=== PATIENT | male | born 1980 | race Caucasian/White ===

== ENCOUNTER 2021-08-01 07:37 | Emergency (ER) | payer OTHER ==
[2021-08-01] MEDS ORDERED: PREDNISONE 20 M20 MG PO (09:13)
== END 2021-08-01 10:06 | disposition home or self-care (01) ==
LOC: ER1 07:37
DX: G89.29 Other chronic pain (principal); M54.50 Low back pain, unspecified
CPT/HCPCS: 96374; 96375; 99283; J1100; J1885; J2270

== ENCOUNTER → 2021-08-19 | Outpatient (CLI) | payer BC ==
[~2021-08-19] MED LIST: PREDNISONE 20 M20 MG PO
== END ==
LOC: MRI 14:39 → KOH-I 16:00
DX: M48.061 Spinal stenosis, lumbar region without neurogenic claudication (principal); M51.36 Other intervertebral disc degeneration, lumbar region; M51.26 Other intervertebral disc displacement, lumbar region
CPT/HCPCS: 72148

== ENCOUNTER → 2021-09-03 | Outpatient (CLI) | payer BC | LOC: KOH-I 15:30 | DX: M51.16 Intervertebral disc disorders with radiculopathy, lumbar region (principal); M25.78 Osteophyte, vertebrae; M48.061 Spinal stenosis, lumbar region without neurogenic claudication | CPT/HCPCS: 72131 ==

== ENCOUNTER → 2021-09-05 | Outpatient (CLI) | payer BC ==
[2021-09-05 10:03] LABS: HEMOGLOBIN 15.1 gm/dl (14.0-17.5); RED BLOOD COUNT 5.1 M/UL (4.20-5.50); WHITE BLOOD COUNT 9.1 K/UL (4.5-11.0)
[2021-09-05 10:37] LABS: BUN/CREATININE RATIO 15 (0-10)
== END ==
LOC: EDSTATUS 09:00 → OPSV2 09:00
PROVIDERS: Orthopaedic Surgery
DX: Z01.818 Encounter for other preprocedural examination (principal); Z51.81 Encounter for therapeutic drug level monitoring; M48.061 Spinal stenosis, lumbar region without neurogenic claudication; M51.16 Intervertebral disc disorders with radiculopathy, lumbar region; R94.31 Abnormal electrocardiogram [ECG] [EKG]
CPT/HCPCS: 71046; 80048; 81001; 85025; 85610; 85730; 87081; 93005

== ENCOUNTER → 2021-09-10 | Outpatient (CLI) | payer BC ==
[2021-09-10 12:53] LABS: BUN/CREATININE RATIO 12 (0-10)
== END ==
LOC: LAB 11:48
PROVIDERS: Orthopaedic Surgery
DX: Z01.812 Encounter for preprocedural laboratory examination (principal)
CPT/HCPCS: 36415; 80048; 86850; 86900; 86901

== ENCOUNTER 2021-09-11 05:28 | Inpatient (IN) | payer BC, OTHER ==
[~2021-09-11] VITALS: Ht 170.2 cm; Wt 86.2 kg
[2021-09-11 13:11] LABS: HEMOGLOBIN 11.9 gm/dl (14.0-17.5)
[2021-09-11 16:32] LABS: HEMOGLOBIN 12.8 gm/dl (14.0-17.5); RED BLOOD COUNT 4.49 M/UL (4.20-5.50); WHITE BLOOD COUNT 8.5 K/UL (4.5-11.0)
[2021-09-11 16:50] LABS: BUN/CREATININE RATIO 12 (0-10)
[2021-09-12 05:30] LABS: RED BLOOD COUNT 4.2 M/UL (4.20-5.50); WHITE BLOOD COUNT 9.7 K/UL (4.5-11.0)
[2021-09-12 06:42] LABS: BUN/CREATININE RATIO 18 (0-10)
[2021-09-13 04:08] LABS: HEMOGLOBIN 11.6 gm/dl (14.0-17.5); RED BLOOD COUNT 3.99 M/UL (4.20-5.50); WHITE BLOOD COUNT 9.6 K/UL (4.5-11.0)
[2021-09-13 04:28] LABS: BUN/CREATININE RATIO 10 (0-10)
--- NOTE | 2021-09-13 19:24 | NUR ---
ORDERS WRITTEN IN PROGRESS NOTE BY PROVIDER VERBALLY GIVEN TO RN'S DURING SHIFT CHANGE. PLAN IS TO POSSIBLY DC PATIENT 09/14 AND INTEND ON PULLING DRAIN 09/14. DRAIN TO BE EMPTIED Q8HR TO BE DONE NEXT (0100 ON 09/14).
[2021-09-14 03:37] LABS: HEMOGLOBIN 11.9 gm/dl (14.0-17.5); RED BLOOD COUNT 4.11 M/UL (4.20-5.50); WHITE BLOOD COUNT 9.2 K/UL (4.5-11.0)
[2021-09-14 03:52] LABS: BUN/CREATININE RATIO 10 (0-10)
== END 2021-09-14 16:29 | disposition home or self-care (01) | DRG 455 ==
LOC: OR 05:28 → CDU 17:22 → CCU 17:23 → M/S 09-13 16:42
PROVIDERS: ADMIT Orthopaedic Surgery
PROC: 01NB0ZZ Release Lumbar Nerve, Open Approach (ICD-10-PCS; 2021-09-11)
PROC: 01NR0ZZ Release Sacral Nerve, Open Approach (ICD-10-PCS; 2021-09-11)
PROC: 4A11X4G Monitoring of Peripheral Nervous Electrical Activity, Intraoperative, External Approach (ICD-10-PCS; 2021-09-11)
PROC: 0SG30AJ Fusion of Lumbosacral Joint with Interbody Fusion Device, Posterior Approach, Anterior Column, Open Approach (ICD-10-PCS; principal; 2021-09-11 07:30)
PROC: 0SG3071 Fusion of Lumbosacral Joint with Autologous Tissue Substitute, Posterior Approach, Posterior Column, Open Approach (ICD-10-PCS; 2021-09-11 07:30)
DX: M48.061 Spinal stenosis, lumbar region without neurogenic claudication (principal); M48.07 Spinal stenosis, lumbosacral region; M51.16 Intervertebral disc disorders with radiculopathy, lumbar region; M51.17 Intervertebral disc disorders with radiculopathy, lumbosacral region; Z20.822 Contact with and (suspected) exposure to COVID-19; K21.9 Gastro-esophageal reflux disease without esophagitis; I10 Essential (primary) hypertension; F12.10 Cannabis abuse, uncomplicated
CPT/HCPCS: 36415; 72110; 72131; 76000; 80048; 85007; 85014; 85018; 85025; 85027; 94760; 97116-GP-CQ; 97161; 97166; C1713; C1762; J0690; J1040; J1100; J1170; J1644; J1885; J2001; J2250; J2370; J2405; J2704; J3010; J3370; J7030; J7040; J7120